=== PATIENT | male | born 1995 | race American Indian/Alaskan Native ===

== ENCOUNTER 2018-10-25 19:25 | Emergency (ER) | payer OTHER ==
--- NOTE | 2018-10-25 21:27 | XRay Report ---
FINAL REPORT EXAM: XR ANKLE 3+V LT HISTORY: pain and swelling r/t injury TECHNIQUE: Three views of the left ankle PRIORS: None. FINDINGS: The bones are normally aligned and mineralized. The joint spaces are well-preserved. There is no evid ence of acute fracture. The soft tissues are unremarkable. IMPRESSION: No evidence of acute fracture or subluxation.
[2018-10-25] MEDS ORDERED: NORCO 5/325 PO STA (23:09)
--- NOTE | 2018-10-25 23:09 | Emergency Department Report ---
ED Lower Extremity HPI - General Chief Complaint: Extremity Injury, Lower Stated Complaint: ANKLE INJURY Time Seen by Provider: 10/25/18 23:01 Source: patient Mode of arrival: Wheelchair Limitations: No Limitations - History of Present Illness Initial Comments: PLAN BASKETBALL WITH COUSINS AROUND THE JUMPED UP AND LANDED AWKWARDLY ROLLING HIS ANKLE AND INVERSION FASHION CAUSING SWELLING AND PAIN AND INABILITY TO AMBULATE SINCE THE TIME OF THE INJURY. HE REPORTS FEELING 5-6 POPS AT THE TIME OF THE INJURY HE STRIATE TO USE ARLINE WRAP FOR COMPRESSION SYMPTOMS HAVE CONTINUED. NO NAUSEA, VOMITING, NO KNEE PAIN. REPORTS NO NUMBNESS OR TINGLING. MD Complaint: ankle injury Injury: Ankle: Left Type of Injury: inversion Severity: moderate Improves With: immobilization Worsens With: weight bearing Associated Symptoms: unable to bear weight - Related Data Previous Rx's Medication Instructions Recorded Last Taken Type Ketorolac [Toradol] 10 mg PO Q6H PRN #15 tablet 10/25/18 Unknown Rx Allergies Allergy/AdvReac Type Severity Reaction Status Date / Time No Known Allergies Allergy Unverified 10/25/18 19:47 ED Review of Systems ROS: Stated complaint: ANKLE INJURY Other details as noted in HPI Constitutional: denies: chills, fever Eyes: denies: eye pain, eye discharge, vision change ENT: denies: ear pain, throat pain Respiratory: denies: cough, shortness of breath, wheezing Cardiovascular: denies: chest pain, palpitations Endocrine: no symptoms reported Gastrointestinal: denies: abdominal pain, nausea, diarrhea Genitourinary: denies: urgency, dysuria Musculoskeletal: joint swelling, arthralgia. denies: back pain Skin: denies: rash, lesions Neurological: denies: headache, weakness, paresthesias Psychiatric: denies: anxiety, depression Hematological/Lymphatic: denies: easy bleeding, easy bruising ED Past Medical Hx - Past Medical History Previous Medical History?: No - Surgical History Past Surgical History?: No - Social History Smoking Status: Current Every Day Smoker Substance Use Type: None - Medications Home Medications: Home Medications Medication Instructions Recorded Confirmed Last Taken Type Ketorolac [Toradol] 10 mg PO Q6H PRN #15 tablet 10/25/18 Unknown Rx ED Physical Exam - General Limitations: No Limitations General appearance: alert, in no apparent distress - Head Head exam: Present: atraumatic, normocephalic - Eye Eye exam: Present: normal appearance, PERRL, EOMI Pupils: Present: normal accommodation - ENT ENT exam: Present: normal exam, mucous membranes moist - Neck Neck exam: Present: normal inspection, full ROM - Respiratory Respiratory exam: Present: normal lung sounds bilaterally. Absent: respiratory distress, wheezes, rales, rhonchi, chest wall tenderness, accessory muscle use - Cardiovascular Cardiovascular Exam: Present: regular rate, normal rhythm. Absent: systolic murmur, diastolic murmur, rubs, gallop - GI/Abdominal GI/Abdominal exam: Present: soft, normal bowel sounds. Absent: tenderness, guarding, hypoactive bowel sounds, organomegaly, mass, bruit - Rectal Rectal exam: Present: deferred - Extremities Exam Extremities exam: Present: normal inspection, full ROM, tenderness, normal capillary refill, joint swelling, other (drawer test normal. Capillary refills are brisk. No tenderness to the base of the fifth metatarsal. Leary's test normal). Absent: calf tenderness - Back Exam Back exam: Present: normal inspection - Neurological Exam Neurological exam: Present: alert, oriented X3, CN II-XII intact - Psychiatric Psychiatric exam: Present: normal affect, normal mood - Skin Skin exam: Present: warm, dry, intact, normal color. Absent: rash ED Course Vital Signs 10/25/18 19:38 Temperature 99.1 F Pulse Rate 75 Respiratory 16 Rate Blood Pressure 144/84 O2 Sat by Pulse 97 Oximetry ED Lower Extremity MDM - Medical Decision Making Patient placed into a posterior brace along with crutches. Neurovascularly intact. No complications. Brace applied to the left ankle Critical care attestation.: If time is entered above; I have spent that time in minutes in the direct care of this critically ill patient, excluding procedure time. ED Disposition Clinical Impression: Ankle sprain Disposition: DC-01 TO HOME OR SELFCARE Is pt being admited?: No Does the pt Need Aspirin: No Condition: Stable Instructions: Ankle Sprain (ED), RICE Therapy (ED) Referrals: HUDSON HERNANDEZ MD [Staff Physician] - 3-5 Days
[2018-10-26 01:10] VITALS: BP 145/80
== END 2018-10-26 01:09 | disposition home or self-care (01) ==
LOC: ED 19:25
DX: S93.402A Sprain of unspecified ligament of left ankle, initial encounter (principal); F17.200 Nicotine dependence, unspecified, uncomplicated; X50.1XXA Overexertion from prolonged static or awkward postures, initial encounter; Y93.67 Activity, basketball; Y99.8 Other external cause status; Y92.89 Other specified places as the place of occurrence of the external cause